=== PATIENT | male | born 1990 | race Caucasian/White ===

== ENCOUNTER 2022-09-26 05:26 | Emergency (ER) | payer MEDICAID, OTHER ==
[~2022-09-26] VITALS: Ht 180.3 cm; Wt 114.0 kg
[2022-09-26] MEDS ORDERED: CEPH500C2 PO (06:25)
[2022-09-26] MEDS ORDERED: SULF1TAB48 PO (06:25)
[2022-09-26] MEDS ORDERED: TOPUD PO (06:27)
[2022-09-26] MEDS ORDERED: ACETAMINOPHEN WITH CODEINE 300/30MG TABLET PO ONE (06:30)
[2022-09-26 06:50] VITALS: BP 132/72
== END 2022-09-26 07:29 | disposition home or self-care (01) ==
LOC: ER 05:26
DX: L03.311 Cellulitis of abdominal wall (principal)
CPT/HCPCS: 99282; 99283

== ENCOUNTER 2023-01-19 15:03 | Emergency (ER) | payer OTHER ==
[~2023-01-19 15:03] MED LIST: CEPH500C2 PO; SULF1TAB48 PO; TOPUD PO
== END 2023-01-19 17:55 | disposition home or self-care (01) ==
LOC: ER 16:44
DX: Z48.00 Encounter for change or removal of nonsurgical wound dressing (principal); Z53.21 Procedure and treatment not carried out due to patient leaving prior to being seen by health care provider
CPT/HCPCS: 99281